=== PATIENT | male | born 1995 | race Caucasian/White ===

== ENCOUNTER 2020-01-25 01:37 | Emergency (ER) | payer OTHER ==
[~2020-01-25] VITALS: Ht 177.8 cm; Wt 68.8 kg
[2020-01-25 01:39] VITALS: BP 132/89
[2020-01-25] MEDS ORDERED: HYDROcodone/APAP 5/325 TABLET PO ONE (02:00)
[2020-01-25] MEDS ORDERED: IBUPROFEN 600 MG TABLET PO ONE (02:00)
[2020-01-25] MEDS ORDERED: HYDROcodone/APAP 5/325 TABLET ONE (02:02)
[2020-01-25] MEDS ORDERED: IBUPROFEN 600 MG TABLET ONE (02:02)
== END 2020-01-25 02:12 | disposition home or self-care (01) ==
LOC: ED 02:00
DX: K02.9 Dental caries, unspecified (principal); K08.89 Other specified disorders of teeth and supporting structures; F17.210 Nicotine dependence, cigarettes, uncomplicated
CPT/HCPCS: 99406